=== PATIENT | female | born 1930 | race Caucasian/White ===

== ENCOUNTER 2017-04-17 13:27 | Inpatient (IN) | payer OTHER, BC ==
[~2017-04-17] VITALS: Ht 175.3 cm; Wt 64.0 kg
[~2017-04-17 13:27] MED LIST: ALLOPURINOL100 MG PO; AMLODIPINE BESY10 MG PO; ASPIR-TRIN325 M1 PO; CIPRO500 MG PO; DILAUDID2 MG PO; EXFORGE 5/161 TABLET PO; FERROUS SULFAT325 MG PO; FISH OIL 1,2001 EAC4 PO; FLAX OIL1000 MG PO; FLEXERIL5 MG PO; FUROSEMIDE20 MG PO; LANSOPRAZOLE30 MG PO; LEVO-T100 MCG PO; LO-DOSE ASPIRIN81 M2 PO; NEURONTIN300 MG PO; NORVASC5 MG PO; SODIUM CHLORIDE1 G1 PO; SYNTHROID100 MCG PO; SYNTHROID125 MCG PO; SYNTHROID25 MCG PO; TESSALON PERLE100 MG PO; TOLTERODINE TART4 MG PO; ZEBETA5 MG PO
[2017-04-17 14:51] LABS: HEMATOCRIT 27.1 % (36.0-46.0); MCH 27.6 PG (29.0-34.0); MCHC 33.2 G/DL (30.0-36.0); MCV 83.1 FL (83-99); MEAN PLAT.VOLUME 10.1 uM^3 (9.5-12.4); PLATELET COUNT 291 K/uL (156-360); RBC DIS.WIDTH-CV 16.4 % (11.8-14.6); RBC DIS.WIDTH-SD 49.7 % (39-53); RED BLOOD COUNT 3.26 M/uL (3.80-5.20); WHITE BLOOD COUNT 8.6 K/uL (4.1-10.2)
[2017-04-17 15:11] LABS: TROP-I INTERPRETATION NEGATIVE; TROPONIN-I 0.01 ng/mL (0.0-0.30)
[2017-04-17 15:32] LABS: CHLORIDE 99 mEq/L (99-109); POTASSIUM 5.6 mEq/L (3.7-5.4); SODIUM 127 mEq/L (136-147)
[2017-04-17 15:34] LABS: GLUCOSE 105 mg/dL (70-99)
[2017-04-17 15:36] LABS: ANION GAP 10 MEQ/L (2-14)
[2017-04-17 15:38] LABS: GFR ESTIMATE (CALCULATED) 41 mL/min/
[2017-04-17 15:39] LABS: UREA NITROGEN (BUN) 33 mg/dL (9-23)
[2017-04-17 16:32] LABS: CHLORIDE 100 mEq/L (99-109); POTASSIUM 5.2 mEq/L (3.7-5.4); SODIUM 128 mEq/L (136-147)
[2017-04-17 16:34] LABS: GLUCOSE 102 mg/dL (70-99)
[2017-04-17 16:35] LABS: ANION GAP 9 MEQ/L (2-14)
[2017-04-17 16:38] LABS: GFR ESTIMATE (CALCULATED) 41 mL/min/
[2017-04-17 16:39] LABS: UREA NITROGEN (BUN) 33 mg/dL (9-23)
[2017-04-17] MEDS ORDERED: FISH OIL 1,0001 EAC7 PO (22:08)
[2017-04-17] MEDS ORDERED: B-121000 MC2 PO (22:09)
[2017-04-17] MEDS ORDERED: DIOVAN320 MG PO (22:10)
[2017-04-17] MEDS ORDERED: PREVACID30 MG PO (22:13)
[2017-04-17] MEDS ORDERED: CRESTOR5 MG PO (22:14)
[2017-04-17] MEDS ORDERED: TYLENOL EXTRA500 MG PO (22:31)
[2017-04-17 22:33] LABS: INTER. NORMALIZED RATIO 1.1; PROTHROMBIN TIME 12.3 SEC (10.2-12.9)
[2017-04-18] VITALS (7 sets, daily range): BP systolic 136–185; BP diastolic 61–80
[2017-04-18 00:42] LABS: TROP-I INTERPRETATION NEGATIVE; TROPONIN-I < 0.01 ng/mL (0.0-0.30)
[2017-04-18 05:53] LABS: HEMATOCRIT 26.4 % (36.0-46.0); MCH 28.1 PG (29.0-34.0); MCV 85.2 FL (83-99); MEAN PLAT.VOLUME 9.3 uM^3 (9.5-12.4); PLATELET COUNT 265 K/uL (156-360); RBC DIS.WIDTH-CV 16.8 % (11.8-14.6); RBC DIS.WIDTH-SD 51.7 % (39-53); WHITE BLOOD COUNT 6.7 K/uL (4.1-10.2)
[2017-04-18 06:24] LABS: TROP-I INTERPRETATION NEGATIVE; TROPONIN-I 0.02 ng/mL (0.0-0.30)
[2017-04-18 07:03] LABS: INTER. NORMALIZED RATIO 1.2; PROTHROMBIN TIME 12.9 SEC (10.2-12.9)
[2017-04-18 07:50] LABS: ALKALINE PHOSPHATASE 67 IU/L (3-129); ANION GAP 9 MEQ/L (2-14); CHLORIDE 101 MEQ/L (99-109); GFR ESTIMATE (CALCULATED) 41 mL/min/; GLUCOSE 84 mg/dL (70-99); POTASSIUM 4.9 MEQ/L (3.7-5.4); SAMPLE HEMOLYSIS CHECK 0; SAMPLE ICTERIC CHECK 0; SAMPLE LIPEMIA CHECK 0; SODIUM 133 MEQ/L (136-147); TOTAL BILIRUBIN 0.7 MG/DL (0.0-1.0); UREA NITROGEN (BUN) 29 mg/dL (9-23)
[2017-04-19 04:15] VITALS: BP 136/60
[2017-04-19 08:05] VITALS: BP 159/70
[2017-04-19 08:52] LABS: ANION GAP 10 MEQ/L (2-14); CHLORIDE 97 MEQ/L (99-109); GFR ESTIMATE (CALCULATED) 38 mL/min/; GLUCOSE 92 mg/dL (70-99); IRON 33 MCG/DL (35-150); POTASSIUM 4.3 MEQ/L (3.7-5.4); SAMPLE HEMOLYSIS CHECK 0; SAMPLE ICTERIC CHECK 0; SAMPLE LIPEMIA CHECK 0; SODIUM 131 MEQ/L (136-147); UREA NITROGEN (BUN) 29 mg/dL (9-23)
[2017-04-19 09:09] LABS: URIC ACID 7.2 mg/dL (3.1-9.2)
[2017-04-19 09:11] LABS: HEMATOCRIT 24.7 % (36.0-46.0); MCH 28.5 PG (29.0-34.0); MCHC 33.6 G/DL (30.0-36.0); MCV 84.9 FL (83-99); MEAN PLAT.VOLUME 9.7 uM^3 (9.5-12.4); PLATELET COUNT 265 K/uL (156-360); RBC DIS.WIDTH-CV 16.9 % (11.8-14.6); RBC DIS.WIDTH-SD 51.9 % (39-53); RED BLOOD COUNT 2.91 M/uL (3.80-5.20); WHITE BLOOD COUNT 6.4 K/uL (4.1-10.2)
[2017-04-19 10:01] LABS: FERRITIN 85 NG/ML (10-291)
[2017-04-19 10:15] LABS: INTERNAL CONTROL VALID? YES
[2017-04-19 11:39] VITALS: BP 144/65
[2017-04-19 16:09] VITALS: BP 145/61
[2017-04-19 19:52] VITALS: BP 148/64
[2017-04-20 00:46] VITALS: BP 139/63
[2017-04-20 03:39] VITALS: BP 137/65
[2017-04-20 05:59] LABS: HEMATOCRIT 23.4 % (36.0-46.0); MCH 27.1 PG (29.0-34.0); MCHC 32.1 G/DL (30.0-36.0); MCV 84.5 FL (83-99); MEAN PLAT.VOLUME 9.2 uM^3 (9.5-12.4); PLATELET COUNT 235 K/uL (156-360); RBC DIS.WIDTH-CV 16.7 % (11.8-14.6); RBC DIS.WIDTH-SD 51.8 % (39-53); RED BLOOD COUNT 2.77 M/uL (3.80-5.20); WHITE BLOOD COUNT 6.3 K/uL (4.1-10.2)
[2017-04-20 06:24] LABS: ANION GAP 9 MEQ/L (2-14); CHLORIDE 99 MEQ/L (99-109); GFR ESTIMATE (CALCULATED) 30 mL/min/; GLUCOSE 127 mg/dL (70-99); POTASSIUM 4.8 MEQ/L (3.7-5.4); SAMPLE HEMOLYSIS CHECK 0; SAMPLE ICTERIC CHECK 0; SAMPLE LIPEMIA CHECK 0; SODIUM 131 MEQ/L (136-147); UREA NITROGEN (BUN) 36 mg/dL (9-23)
[2017-04-20 08:50] VITALS: BP 152/69
[2017-04-20 08:54] VITALS: BP 142/64
[2017-04-20 16:05] VITALS: BP 143/65
[2017-04-20 21:08] VITALS: BP 157/68
[2017-04-21 00:40] VITALS: BP 149/93
[2017-04-21 04:10] VITALS: BP 108/80
[2017-04-21 06:10] LABS: HEMATOCRIT 24.6 % (36.0-46.0); MCH 27.6 PG (29.0-34.0); MCHC 31.7 G/DL (30.0-36.0); MCV 86.9 FL (83-99); MEAN PLAT.VOLUME 9.7 uM^3 (9.5-12.4); PLATELET COUNT 243 K/uL (156-360); RBC DIS.WIDTH-SD 54.7 % (39-53); RED BLOOD COUNT 2.83 M/uL (3.80-5.20); WHITE BLOOD COUNT 11.2 K/uL (4.1-10.2)
[2017-04-21 06:32] LABS: ANION GAP 8 MEQ/L (2-14); CHLORIDE 102 MEQ/L (99-109); GFR ESTIMATE (CALCULATED) 28 mL/min/; GLUCOSE 109 mg/dL (70-99); MAGNESIUM 2.1 mg/dl (1.3-2.7); POTASSIUM 4.8 MEQ/L (3.7-5.4); SAMPLE HEMOLYSIS CHECK 0; SAMPLE ICTERIC CHECK 0; SAMPLE LIPEMIA CHECK 0; SODIUM 135 MEQ/L (136-147); UREA NITROGEN (BUN) 40 mg/dL (9-23)
[2017-04-21 07:39] VITALS: BP 169/75
[2017-04-21 11:12] VITALS: BP 157/70
[2017-04-21] MEDS ORDERED: CEFTIN250 MG PO (13:12)
[2017-04-21] MEDS ORDERED: ELIQUIS2.5 MG PO (13:12)
[2017-04-21] MEDS ORDERED: SENNA PLUS TAB1 EACH PO (13:12)
[2017-04-21] MEDS ORDERED: VITAMIN D2000 UNI1 PO (13:12)
[2017-04-21] MEDS ORDERED: SODIUM CHLORIDE1 G1 PO (13:12)
[2017-04-21] MEDS ORDERED: NITROPASTE 2%1 GM TD (13:12)
[2017-04-21] MEDS ORDERED: FUROSEMIDE20 MG PO (13:12)
== END 2017-04-21 15:15 | DRG 299 ==
LOC: EME 13:27 → EDOF 21:24 → 5SOUTH 21:24 → ENRESERV 21:25 → 4EAST 04-18 00:40 → ENRESERV 04-18 11:29 → 5SOUTH 04-18 18:03
PROVIDERS: Emergency Medicine; Hospitalist; Internal Medicine; Internal Medicine Nephrology; Physician Assistant
DX: I82.491 Acute embolism and thrombosis of other specified deep vein of right lower extremity (principal); I13.0 Hypertensive heart and chronic kidney disease with heart failure and stage 1 through stage 4 chronic kidney disease, or unspecified chronic kidney disease; I50.33 Acute on chronic diastolic (congestive) heart failure; I25.10 Atherosclerotic heart disease of native coronary artery without angina pectoris; D50.9 Iron deficiency anemia, unspecified; E03.9 Hypothyroidism, unspecified; E22.2 Syndrome of inappropriate secretion of antidiuretic hormone; E55.9 Vitamin D deficiency, unspecified; E78.5 Hyperlipidemia, unspecified; I25.2 Old myocardial infarction; I27.2 Other secondary pulmonary hypertension; J18.9 Pneumonia, unspecified organism; J20.9 Acute bronchitis, unspecified; J98.11 Atelectasis; K21.9 Gastro-esophageal reflux disease without esophagitis; M10.9 Gout, unspecified; N18.3 Chronic kidney disease, stage 3 (moderate); D63.1 Anemia in chronic kidney disease; Z95.5 Presence of coronary angioplasty implant and graft; I08.3 Combined rheumatic disorders of mitral, aortic and tricuspid valves; R09.02 Hypoxemia
CPT/HCPCS: 71020; 71275; 80048; 80048 91; 80053; 80069; 82272; 82306; 82728; 83540; 83735; 83880; 83930; 83935; 84300; 84466; 84484; 84550; 85014; 85018; 85027; 85379; 85610; 85730; 87040; 87070; 87205; 87449; 93005; 93306; 93970; 94799; 99202; 99281; 99285; J0456; J0696; J0881; J1756; J1940; J7050; J7512

== ENCOUNTER 2017-09-28 11:30 | Inpatient (IN) | payer OTHER, BC ==
[~2017-09-28] VITALS: Ht 170.2 cm; Wt 70.3 kg
[~2017-09-28 11:30] MED LIST changes: +B-12500 MC1 SL; +CEFTIN250 MG PO; +CRESTOR5 MG PO; +DIOVAN320 MG PO; +ELIQUIS2.5 MG PO; +FISH OIL 1,0001 EAC7 PO; +NITROPASTE 2%1 GM TD; +PREVACID30 MG PO; +SENNA PLUS TAB1 EACH PO; +TYLENOL EXTRA500 MG PO; +VITAMIN D2000 UNI1 PO
[2017-09-28 13:02] LABS: BASOPHIL (%) 0.6 % (0-1); BASOPHIL COUNT 0.1 K/uL (0-0.1); EOSINOPHIL (%) 0.4 % (0-5); HEMATOCRIT 25.7 % (36.0-46.0); HEMOGLOBIN 8.6 G/DL (11.9-15.5); IMMATURE GRANULOCYTE (%) 1.2 % (0.0-0.7); LYMPHOCYTE COUNT 0.7 K/uL (1.0-2.8); MCH 29.6 PG (29.0-34.0); MCHC 33.5 G/DL (30.0-36.0); MCV 88.3 FL (83-99); MONOCYTE (%) 7.7 % (3-12); MONOCYTE COUNT 0.8 K/uL (0-0.8); NEUTROPHIL (%) 83.1 % (45-76); NEUTROPHIL COUNT 8.1 K/uL (1.8-6.4); PLATELET COUNT 292 K/uL (156-360); RBC DIS.WIDTH-CV 15.4 % (11.8-14.6); RBC DIS.WIDTH-SD 49.1 % (39-53); RED BLOOD COUNT 2.91 M/uL (3.80-5.20); WHITE BLOOD COUNT 9.7 K/uL (4.1-10.2)
[2017-09-28 13:09] LABS: INTER. NORMALIZED RATIO 1.3
[2017-09-28 13:12] LABS: PTT 24.7 SEC (25-37)
[2017-09-28 13:32] LABS: TROP-I INTERPRETATION NEGATIVE; TROPONIN-I 0.02 ng/mL (0.0-0.30)
[2017-09-28 13:33] LABS: CHLORIDE 97 MEQ/L (99-109); CREATININE 1.4 MG/DL (0.6-1.3); GFR ESTIMATE (CALCULATED) 38 mL/min/; GLUCOSE 113 mg/dL (70-99); POTASSIUM 5.3 MEQ/L (3.7-5.4); SODIUM 126 MEQ/L (136-147); UREA NITROGEN (BUN) 28 mg/dL (9-23)
[2017-09-28] MEDS ORDERED: VITAMIN D2000 UNI1 PO (15:17)
[2017-09-28] MEDS ORDERED: TRAMADOL HCL50 MG PO (15:17)
[2017-09-28] MEDS ORDERED: THERMOTABS1 TABLET PO (15:19)
[2017-09-28] MEDS ORDERED: ISOSORBIDE DINI20 MG PO (15:22)
[2017-09-28] MEDS ORDERED: SPIRONOLACTONE50 MG PO (15:25)
[2017-09-28] MEDS ORDERED: FUROSEMIDE20 MG PO (15:27)
[2017-09-28 18:44] VITALS: BP 171/88
[2017-09-28 20:26] LABS: CHLORIDE 96 MEQ/L (99-109); CREATININE 1.4 MG/DL (0.6-1.3); GFR ESTIMATE (CALCULATED) 38 mL/min/; GLUCOSE 126 mg/dL (70-99); SODIUM 127 MEQ/L (136-147); UREA NITROGEN (BUN) 28 mg/dL (9-23)
[2017-09-29] VITALS (7 sets, daily range): BP systolic 106–152; BP diastolic 50–68
[2017-09-29 10:16] LABS: APPEARANCE SL.HAZY ((CLEAR)); BILIRUBIN NEGATIVE; BLOOD MODERATE; COLOR YELLOW ((YELLOW)); GLUCOSE (STRIP) NEGATIVE; KETONES NEGATIVE; LEUKOCYTES LARGE; NITRITE POSITIVE; PROTEIN (STRIP) 100; SPECIFIC GRAVITY 1.006 (1.000-1.030); UROBILINOGEN 0.2 MG/DL (0.2-1.0)
[2017-09-29 10:48] LABS: BACTERIA 2+ /HPF; EPITHELIAL CELLS RARE /HPF; MUCUS TRACE /LPF; UCUL ADDED? YES; WHITE BLOOD CELLS TNTC /HPF (0-5)
[2017-09-29 13:41] LABS: UR CREATININE CONCENTRATION 35.3 MG/DL
[2017-09-30 04:08] VITALS: BP 132/60
[2017-09-30 05:39] LABS: BASOPHIL (%) 0.7 % (0-1); BASOPHIL COUNT 0.1 K/uL (0-0.1); EOSINOPHIL (%) 7.9 % (0-5); EOSINOPHIL COUNT 0.7 K/uL (0-0.3); HEMATOCRIT 23.8 % (36.0-46.0); HEMOGLOBIN 7.6 G/DL (11.9-15.5); IMMATURE GRANULOCYTE (%) 0.8 % (0.0-0.7); LYMPHOCYTE (%) 12.3 % (15-42); LYMPHOCYTE COUNT 1.1 K/uL (1.0-2.8); MCH 28.5 PG (29.0-34.0); MCHC 31.9 G/DL (30.0-36.0); MCV 89.1 FL (83-99); MONOCYTE (%) 12.1 % (3-12); MONOCYTE COUNT 1.1 K/uL (0-0.8); NEUTROPHIL (%) 66.2 % (45-76); PLATELET COUNT 289 K/uL (156-360); RBC DIS.WIDTH-CV 15.3 % (11.8-14.6); RBC DIS.WIDTH-SD 50.4 % (39-53); RED BLOOD COUNT 2.67 M/uL (3.80-5.20)
[2017-09-30 06:00] LABS: ALBUMIN 2.6 G/DL (3.4-5.0); GLOBULINS 2.6 G/DL (2.3-3.5); TOTAL PROTEIN 5.2 G/DL (6.4-8.2)
[2017-09-30 06:03] LABS: CHLORIDE 101 MEQ/L (99-109); CREATININE 1.8 MG/DL (0.6-1.3); GFR ESTIMATE (CALCULATED) 28 mL/min/; GLUCOSE 105 mg/dL (70-99); MAGNESIUM 1.9 mg/dl (1.3-2.7); PHOSPHORUS 3.7 mg/dL (2.5-4.9); POTASSIUM 4.8 MEQ/L (3.7-5.4); SODIUM 134 MEQ/L (136-147); UREA NITROGEN (BUN) 35 mg/dL (9-23); URIC ACID 8.5 mg/dL (3.1-9.2)
[2017-09-30 07:15] VITALS: BP 135/65
[2017-09-30 11:04] LABS: HEPATITIS C ANTIBODY Nonreactive
[2017-09-30 12:00] VITALS: BP 119/68
[2017-09-30 15:34] VITALS: BP 126/60
[2017-09-30 19:50] VITALS: BP 143/67
[2017-09-30 23:23] VITALS: BP 127/66
[2017-10-01] VITALS (11 sets, daily range): BP systolic 122–158; BP diastolic 60–71
[2017-10-01 05:47] LABS: BASOPHIL (%) 0.4 % (0-1); EOSINOPHIL (%) 7.6 % (0-5); EOSINOPHIL COUNT 0.6 K/uL (0-0.3); HEMATOCRIT 21.5 % (36.0-46.0); HEMOGLOBIN 7.1 G/DL (11.9-15.5); LYMPHOCYTE (%) 15.3 % (15-42); LYMPHOCYTE COUNT 1.3 K/uL (1.0-2.8); MCH 29.5 PG (29.0-34.0); MCV 89.2 FL (83-99); MONOCYTE (%) 15.6 % (3-12); MONOCYTE COUNT 1.3 K/uL (0-0.8); NEUTROPHIL (%) 60.1 % (45-76); PLATELET COUNT 252 K/uL (156-360); RBC DIS.WIDTH-SD 48.7 % (39-53); RED BLOOD COUNT 2.41 M/uL (3.80-5.20); WHITE BLOOD COUNT 8.4 K/uL (4.1-10.2)
[2017-10-01 06:06] LABS: CHLORIDE 98 MEQ/L (99-109); CREATININE 1.8 MG/DL (0.6-1.3); GFR ESTIMATE (CALCULATED) 28 mL/min/; GLUCOSE 94 mg/dL (70-99); POTASSIUM 4.8 MEQ/L (3.7-5.4); SODIUM 130 MEQ/L (136-147); UREA NITROGEN (BUN) 37 mg/dL (9-23)
[2017-10-01 16:05] LABS: ALPHA-2 GLOBULIN 0.83 G/DL (0.45-0.85); BETA-GLOBULIN 0.74 G/DL (0.65-1.15); GAMMA-GLOBULIN 0.73 G/DL (0.60-1.35)
[2017-10-02 04:25] VITALS: BP 140/79
[2017-10-02 06:15] LABS: BASOPHIL (%) 0.4 % (0-1); BASOPHIL COUNT 0.1 K/uL (0-0.1); EOSINOPHIL COUNT 0.1 K/uL (0-0.3); HEMATOCRIT 26.5 % (36.0-46.0); HEMOGLOBIN 8.7 G/DL (11.9-15.5); IMMATURE GRANULOCYTE (%) 0.6 % (0.0-0.7); LYMPHOCYTE (%) 9.6 % (15-42); LYMPHOCYTE COUNT 1.1 K/uL (1.0-2.8); MCH 28.9 PG (29.0-34.0); MCHC 32.8 G/DL (30.0-36.0); MONOCYTE (%) 14.9 % (3-12); MONOCYTE COUNT 1.7 K/uL (0-0.8); NEUTROPHIL (%) 73.5 % (45-76); NEUTROPHIL COUNT 8.4 K/uL (1.8-6.4); PLATELET COUNT 269 K/uL (156-360); RBC DIS.WIDTH-CV 15.1 % (11.8-14.6); RBC DIS.WIDTH-SD 48.7 % (39-53); WHITE BLOOD COUNT 11.5 K/uL (4.1-10.2)
[2017-10-02 06:16] LABS: RED BLOOD COUNT 3.01 M/uL (3.80-5.20)
[2017-10-02 06:55] LABS: CHLORIDE 96 MEQ/L (99-109); CREATININE 1.9 MG/DL (0.6-1.3); GFR ESTIMATE (CALCULATED) 27 mL/min/; POTASSIUM 4.5 MEQ/L (3.7-5.4); SODIUM 133 MEQ/L (136-147); UREA NITROGEN (BUN) 38 mg/dL (9-23)
[2017-10-02 06:59] LABS: GLUCOSE 120 mg/dL (70-99)
[2017-10-02 07:29] VITALS: BP 122/56
[2017-10-02 13:36] VITALS: BP 115/56
[2017-10-02 17:07] VITALS: BP 101/53
[2017-10-02 21:01] VITALS: BP 124/56
[2017-10-03 01:16] VITALS: BP 117/56
[2017-10-03 04:48] VITALS: BP 135/62
[2017-10-03 05:54] LABS: BASOPHIL (%) 0.3 % (0-1); EOSINOPHIL (%) 1.4 % (0-5); EOSINOPHIL COUNT 0.2 K/uL (0-0.3); HEMATOCRIT 24.9 % (36.0-46.0); HEMOGLOBIN 8.2 G/DL (11.9-15.5); IMMATURE GRANULOCYTE (%) 0.6 % (0.0-0.7); LYMPHOCYTE (%) 6.6 % (15-42); LYMPHOCYTE COUNT 0.9 K/uL (1.0-2.8); MCH 29.5 PG (29.0-34.0); MCHC 32.9 G/DL (30.0-36.0); MCV 89.6 FL (83-99); NEUTROPHIL (%) 84.1 % (45-76); NEUTROPHIL COUNT 11.7 K/uL (1.8-6.4); PLATELET COUNT 241 K/uL (156-360); RBC DIS.WIDTH-SD 49.7 % (39-53); RED BLOOD COUNT 2.78 M/uL (3.80-5.20); WHITE BLOOD COUNT 13.9 K/uL (4.1-10.2)
[2017-10-03 06:57] LABS: CHLORIDE 95 MEQ/L (99-109); GFR ESTIMATE (CALCULATED) 20 mL/min/; GLUCOSE 135 mg/dL (70-99); SODIUM 131 MEQ/L (136-147); UREA NITROGEN (BUN) 54 mg/dL (9-23)
[2017-10-03 07:00] LABS: CREATININE 2.4 MG/DL (0.6-1.3)
[2017-10-03 08:26] VITALS: BP 123/60
[2017-10-03 12:56] VITALS: BP 110/76
[2017-10-03 15:46] VITALS: BP 121/56
[2017-10-03 23:56] VITALS: BP 136/67
[2017-10-04 04:16] VITALS: BP 163/71
[2017-10-04 04:42] LABS: ALBUMIN 2.7 g/dL (3.2-4.8)
[2017-10-04 04:43] LABS: CHLORIDE 100 mEq/L (99-109); POTASSIUM 5.6 mEq/L (3.7-5.4); SODIUM 131 mEq/L (136-147)
[2017-10-04 04:45] LABS: GLUCOSE 118 mg/dL (70-99)
[2017-10-04 04:48] LABS: PHOSPHORUS 3.5 mg/dL (2.5-4.9)
[2017-10-04 04:49] LABS: CREATININE 2.8 mg/dL (0.6-1.3); GFR ESTIMATE (CALCULATED) 17 mL/min/
[2017-10-04 04:50] LABS: UREA NITROGEN (BUN) 60 mg/dL (9-23)
[2017-10-04 05:38] LABS: IRON 33 MCG/DL (35-150); TRANSFERRIN (TIBC) 160.5 mg/dL (215-380); TRANSFERRIN SATUR. 21 % (20-55)
[2017-10-04 07:30] VITALS: BP 133/60
[2017-10-04 07:46] LABS: FERRITIN 252 NG/ML (10-291)
[2017-10-04 11:45] VITALS: BP 121/62
[2017-10-04 16:00] VITALS: BP 119/57
[2017-10-04 20:11] VITALS: BP 126/60
[2017-10-05 00:49] VITALS: BP 125/59
[2017-10-05 04:17] VITALS: BP 137/62
[2017-10-05 08:44] LABS: HEMATOCRIT 24.5 % (36.0-46.0); HEMOGLOBIN 8.1 G/DL (11.9-15.5); MCH 29.3 PG (29.0-34.0); MCHC 33.1 G/DL (30.0-36.0); MCV 88.8 FL (83-99); PLATELET COUNT 260 K/uL (156-360); RBC DIS.WIDTH-CV 15.1 % (11.8-14.6); RBC DIS.WIDTH-SD 48.5 % (39-53); RED BLOOD COUNT 2.76 M/uL (3.80-5.20); WHITE BLOOD COUNT 13.8 K/uL (4.1-10.2)
[2017-10-05 08:47] VITALS: BP 147/67
[2017-10-05 09:13] LABS: CHLORIDE 101 MEQ/L (99-109); CREATININE 2.5 MG/DL (0.6-1.3); GFR ESTIMATE (CALCULATED) 19 mL/min/; GLUCOSE 92 mg/dL (70-99); POTASSIUM 4.6 MEQ/L (3.7-5.4); SODIUM 133 MEQ/L (136-147); UREA NITROGEN (BUN) 70 mg/dL (9-23)
[2017-10-05 12:29] VITALS: BP 145/65
[2017-10-05 16:53] VITALS: BP 144/63
[2017-10-05 19:52] VITALS: BP 117/58
[2017-10-06 00:14] VITALS: BP 131/63
[2017-10-06 03:59] VITALS: BP 147/65
[2017-10-06 05:15] LABS: BASOPHIL (%) 0.2 % (0-1); EOSINOPHIL (%) 0 % (0-5); HEMATOCRIT 25.6 % (36.0-46.0); HEMOGLOBIN 8.3 G/DL (11.9-15.5); IMMATURE GRANULOCYTE (%) 1.4 % (0.0-0.7); LYMPHOCYTE (%) 6.4 % (15-42); LYMPHOCYTE COUNT 0.8 K/uL (1.0-2.8); MCH 28.6 PG (29.0-34.0); MCHC 32.4 G/DL (30.0-36.0); MCV 88.3 FL (83-99); MONOCYTE (%) 1.6 % (3-12); MONOCYTE COUNT 0.2 K/uL (0-0.8); NEUTROPHIL (%) 90.4 % (45-76); NEUTROPHIL COUNT 11.4 K/uL (1.8-6.4); PLATELET COUNT 299 K/uL (156-360); RBC DIS.WIDTH-CV 14.7 % (11.8-14.6); RBC DIS.WIDTH-SD 47.8 % (39-53); WHITE BLOOD COUNT 12.6 K/uL (4.1-10.2)
[2017-10-06 05:36] LABS: CHLORIDE 101 MEQ/L (99-109); CREATININE 2.1 MG/DL (0.6-1.3); GFR ESTIMATE (CALCULATED) 24 mL/min/; GLUCOSE 138 mg/dL (70-99); POTASSIUM 4.3 MEQ/L (3.7-5.4); SODIUM 135 MEQ/L (136-147); UREA NITROGEN (BUN) 67 mg/dL (9-23)
[2017-10-06 08:32] VITALS: BP 137/64
[2017-10-06] MEDS ORDERED: LOPRESSOR25 MG PO (11:47)
[2017-10-06] MEDS ORDERED: FERROUS SULFAT325 MG PO (11:47)
[2017-10-06] MEDS ORDERED: FUROSEMIDE20 MG PO (11:48)
[2017-10-06] MEDS ORDERED: FAMOTIDINE20 MG PO (11:49)
[2017-10-06 11:52] VITALS: BP 123/76
[2017-10-06] MEDS ORDERED: Prelone,Orapred PO (11:52)
[2017-10-06] MEDS ORDERED: BENADRYL25 MG PO (11:54)
[2017-10-06] MEDS ORDERED: TRAMADOL HCL50 MG PO (11:55)
== END 2017-10-06 15:30 | DRG 291 ==
LOC: EME 11:30 → 4SOUTH 14:39 → EDOF 14:39 → ENRESERV 14:50 → 4SOUTH 18:26
PROVIDERS: Emergency Medicine; Hospitalist; Internal Medicine; Internal Medicine Nephrology
PROC: 30233N1 Transfusion of Nonautologous Red Blood Cells into Peripheral Vein, Percutaneous Approach (ICD-10-PCS; principal; 2017-10-01)
DX: I50.43 Acute on chronic combined systolic (congestive) and diastolic (congestive) heart failure (principal); J96.01 Acute respiratory failure with hypoxia; E22.2 Syndrome of inappropriate secretion of antidiuretic hormone; N17.9 Acute kidney failure, unspecified; I13.0 Hypertensive heart and chronic kidney disease with heart failure and stage 1 through stage 4 chronic kidney disease, or unspecified chronic kidney disease; J98.11 Atelectasis; K92.2 Gastrointestinal hemorrhage, unspecified; N39.0 Urinary tract infection, site not specified; Z66 Do not resuscitate; G89.29 Other chronic pain; K21.9 Gastro-esophageal reflux disease without esophagitis; E03.9 Hypothyroidism, unspecified; D50.9 Iron deficiency anemia, unspecified; T36.1X5A Adverse effect of cephalosporins and other beta-lactam antibiotics, initial encounter; B96.1 Klebsiella pneumoniae [K. pneumoniae] as the cause of diseases classified elsewhere; E78.5 Hyperlipidemia, unspecified; E87.5 Hyperkalemia; N18.3 Chronic kidney disease, stage 3 (moderate); I27.20 Pulmonary hypertension, unspecified; I25.10 Atherosclerotic heart disease of native coronary artery without angina pectoris; I70.0 Atherosclerosis of aorta; K64.9 Unspecified hemorrhoids; M10.9 Gout, unspecified; M41.9 Scoliosis, unspecified; N28.1 Cyst of kidney, acquired; I34.0 Nonrheumatic mitral (valve) insufficiency; I36.1 Nonrheumatic tricuspid (valve) insufficiency; K80.20 Calculus of gallbladder without cholecystitis without obstruction; M85.80 Other specified disorders of bone density and structure, unspecified site; Z79.01 Long term (current) use of anticoagulants; Z79.82 Long term (current) use of aspirin; Z86.718 Personal history of other venous thrombosis and embolism; Z87.891 Personal history of nicotine dependence; Z91.11 Patient's noncompliance with dietary regimen; Z91.14 Patient's other noncompliance with medication regimen; Z95.5 Presence of coronary angioplasty implant and graft; Y92.230 Patient room in hospital as the place of occurrence of the external cause
CPT/HCPCS: 71045; 76705; 76770; 77075; 80048; 80048 91; 80069; 81003; 82272; 82570; 82728; 83540; 83735; 83880; 83883 90; 83935; 84100; 84156; 84165; 84300; 84466; 84484; 84550; 85025; 85027; 85610; 85730; 86803; 86850; 86900; 86901; 86920; 87040; 87077; 87086; 87186; 93005; 93306; 93970; 94799; 97530 GO; 99281; 99285; J0696; J1200; J1940; J2405; P9016